=== PATIENT | male | born 1960 | race Caucasian/White ===

== ENCOUNTER 2019-06-23 16:06 | Emergency (ER) | payer OTHER ==
[~2019-06-23] VITALS: Ht 185.4 cm; Wt 124.7 kg
[~2019-06-23 16:06] MED LIST: ASPIR 8181 M1 PO; CIPROFLOXACIN500 M1 PO; CYMBALTA30 MG PO; IBUPROFEN 600600 M1 PO; IBUPROFEN 800800 M1 PO; LIORESAL 10 MG10 MG PO; LIPITOR 20 MG T20 M1 PO; NORCO 5-325 TA1 EACH PO; VOLTAREN GEL 1100 G2 PO; ZESTORETIC 10-1 EACH PO; [UNRECOGNIZED DRUG - REMARK]; [UNRECOGNIZED DRUG - REMARK]
[2019-06-23] MEDS ORDERED: GRALISE600 MG PO (16:14)
[2019-06-23] MEDS ORDERED: TESTOSTERONE CYPIONA INJECTION (16:15)
[2019-06-23 20:03] VITALS: BP 150/74
== END 2019-06-23 20:04 | disposition home or self-care (01) ==
LOC: M.ERS 16:06
DX: K59.00 Constipation, unspecified (principal); K56.49 Other impaction of intestine; I10 Essential (primary) hypertension; M54.9 Dorsalgia, unspecified; G89.29 Other chronic pain; Z88.0 Allergy status to penicillin; Z88.1 Allergy status to other antibiotic agents; Z90.49 Acquired absence of other specified parts of digestive tract